=== PATIENT | male | born 1985 ===

== ENCOUNTER 2017-07-19 06:19 | Observation (INO) | payer OTHER, BC ==
[2017-07-19 06:39] VITALS: RESP 18
--- NOTE | 2017-07-19 07:18 | ED PDOC ---
- ECG O2 Sat by Pulse Oximetry: 99 (RA) Pulse Ox Interpretation: Normal Medical Decision Making Medical Decision Making: Time: 7:10 Patient was signed out to me by Dr. Newton. Disposition - Disposition Forms: [employer] ([employer])
[2017-07-19 08:10] LABS: URINE BILIRUBIN NEGATIVE (NEGATIVE); URINE BLOOD NEGATIVE (NEGATIVE); URINE CLARITY CLEAR (Clear); URINE COLOR YELLOW (YELLOW); URINE GLUCOSE (UA) NEG (Normal); URINE LEUKOCYTE ESTERASE NEG Leu/uL (Negative); URINE PROTEIN NEGATIVE (NEGATIVE); URINE UROBILINOGEN 0.2-1.0 mg/dL (0.2-1.0)
[2017-07-19 08:14] LABS: BASO % 0.4 % (0.0-2.0); EOS # 0.1 K/uL (0.0-0.7); EOS % 0.8 % (0.0-4.0); HEMOGLOBIN 14.4 g/dL (12.0-18.0); LYMPH # 1.9 K/uL (1.0-4.3); MEAN CELL VOLUME 88.7 fl (80.0-94.0); MEAN CORPUSCULAR HEMOGLOBIN 29.8 pg (27.0-31.0); MEAN CORPUSCULAR HGB CONC 33.6 g/dL (33.0-37.0); MEAN PLATELET VOLUME 8.3 fl (7.2-11.7); MONO # 0.4 K/uL (0.0-0.8); MONO % 6.1 % (0.0-10.0); NEUT # 4.4 K/uL (1.8-7.0); NEUT % 64.7 % (50.0-75.0); NRBC % 0.1 % (0.0-0.0); RBC 4.84 Mil/uL (4.40-5.90); RED CELL DISTRIBUTION WIDTH 14.3 % (11.5-14.5); WHITE BLOOD COUNT 6.8 K/uL (4.8-10.8)
[2017-07-19 08:15] LABS: BLOOD UREA NITROGEN 17 mg/dl (9-20); CALCIUM 9.7 mg/dL (8.4-10.2); GFR AFRICAN-AMERICAN > 60; GFR NON-AFRICAN AMERICAN > 60
--- NOTE | 2017-07-19 08:22 | ED PDOC ---
Upper Extremity Pain/Injury Time Seen by Provider: 07/19/17 07:10 Chief Complaint (Nursing): Upper Extremity Problem/Injury Chief Complaint (Provider): Left Hand Injury History Per: Patient History/Exam Limitations: no limitations Onset/Duration Of Symptoms: Days (x7) Current Symptoms Are (Timing): Still Present Additional Complaint(s): Juan Francisco Reyes is a 45 year old male, who presents to the ED complaining of left hand pain s/p injury to left hand at work one week ago. Patient states that he fell and crushed his left hand at work, and visited Dr. Bustillos who recommended he needs surgical repair. He reports taking Percocet for the pain, with no relief of symptoms. He also denies any numbness, tingling, or head injury. Patient offers no other complaints at this time. PMD: none provided Past Medical History Reviewed: Historical Data, Nursing Documentation, Vital Signs Vital Signs: Last Vital Signs Temp 98.0 F 07/19/17 06:35 Pulse 73 07/19/17 06:35 Resp 18 07/19/17 06:35 BP Pulse Ox 99 07/19/17 06:35 - Medical History PMH: Fractures (Left arm x 2) - Surgical History Surgical History: No Surg Hx - Family History Family History: States: Unknown Family Hx - Social History Current smoker - smoking cessation education provided: Yes Alcohol: Social - Home Medications Home Medications: Ambulatory Orders Medication Instructions Recorded Cephalexin [Keflex] 500 mg PO Q6 07/19/17 Docusate [Colace] 100 mg PO DAILY PRN 07/19/17 Hydrocodone/Acetaminophen 1 tab PO Q4 07/19/17 [Hydrocodone-Acetamin 5-325 mg] Ondansetron HCl [Zofran] 8 mg PO DAILY 07/19/17 oxyCODONE/Acetaminophen [Percocet 1 tab PO Q6 PRN 07/19/17 5/325 mg Tab] - Allergies Allergies/Adverse Reactions: Allergies Allergy/AdvReac Type Severity Reaction Status Date / Time No Known Allergies Allergy Verified 07/19/17 06:35 Review of Systems ROS Statement: Except As Marked, All Systems Reviewed And Found Negative Musculoskeletal: Positive for: Arm Pain (left), Hand Pain (left ) Neurological: Negative for: Numbness Physical Exam - Reviewed Nursing Documentation Reviewed: Yes Vital Signs Reviewed: Yes - Physical Exam Appears: Positive for: Non-toxic, No Acute Distress Head Exam: Positive for: ATRAUMATIC, NORMAL INSPECTION, NORMOCEPHALIC Skin: Positive for: Normal Color, Warm, Dry Eye Exam: Positive for: EOMI, Normal appearance, PERRL Neck: Positive for: Normal, Painless ROM Cardiovascular/Chest: Positive for: Regular Rate, Rhythm. Negative for: Murmur Respiratory: Positive for: Normal Breath Sounds. Negative for: Respiratory Distress Gastrointestinal/Abdominal: Positive for: Normal Exam, Soft. Negative for: Tenderness Back: Positive for: Normal Inspection. Negative for: L CVA Tenderness, R CVA Tenderness, Vertebral Tenderness Extremity: Positive for: Capillary Refill (normal), Other (Left arm is in cast, tip of fingers, first two, visible fingers are neurovascularly intact ). Negative for: Deformity, Swelling Neurologic/Psych: Positive for: Alert, Oriented - Laboratory Results Result Diagrams: 07/19/17 07:40 07/19/17 07:40 - ECG O2 Sat by Pulse Oximetry: 99 (RA) Pulse Ox Interpretation: Normal Medical Decision Making Medical Decision Making: Time: 7:57 Initial Impression: left hand injury, hand and arm fracture Plan: --X-Ray Hand --Coag --Blood Type and Screen Contact and consult Dr. Bustillos. X-Ray Hand: FINDINGS: BONES: No definite acute fracture or dislocation is identified. Partial cast obscures bone and soft tissue details. A small exostosis is questioned related to the distal metaphysis of the radial side of the 3rd metacarpal bone. JOINTS: Normal. No osteoarthritic changes. SOFT TISSUES: Normal. OTHER FINDINGS: None. IMPRESSION: No definite acute fracture dislocation however the study is compromised by partial cast. Small exostosis is questioned related to the distal portion of the 3rd metacarpal bone as discussed above. Time: 7:[address] Bustillos, patient will be admitted for surgical fixation. Scribe Attestation: Documented by Denise Colindres, acting as a scribe for Sushila Rader MD Provider Scribe Attestation: All medical record entries made by the Scribe were at my direction and personally dictated by me. I have reviewed the chart and agree that the record accurately reflects my personal performance of the history, physical exam, medical decision making, and the department course for this patient. I have also personally directed, reviewed, and agree with the discharge instructions and disposition. Disposition - Clinical Impression Clinical Impression: Hand fracture, left - Patient ED Disposition Is Patient to be Admitted: Yes Discussed With : Poli Bustillos Doctor Will See Patient In The: Hospital Counseled Patient/Family Regarding: Studies Performed, Diagnosis - Disposition Disposition Time: 07:57 Condition: FAIR - Pt Status Changed To: Hospital Disposition Of: Observation - POA Present On Arrival: Falls Or Trauma
[2017-07-19 08:44] LABS: PARTIAL THROMBOPLASTIN TIME 31.2 Seconds (25.6-37.1); PROTHROMBIN TIME 10.6 Seconds (9.8-13.1)
--- NOTE | 2017-07-19 10:21 | RAD ---
PROCEDURE: Left Hand Radiographs. HISTORY: left hand injury COMPARISON: None. FINDINGS: BONES: No definite acute fracture or dislocation is identified. Partial cast obscures bone and soft tissue details. A small exostosis is questioned related to the distal metaphysis of the radial side of the 3rd metacarpal bone. JOINTS: Normal. No osteoarthritic changes. SOFT TISSUES: Normal. OTHER FINDINGS: None. IMPRESSION: No definite acute fracture dislocation however the study is compromised by partial cast. Small exostosis is questioned related to the distal portion of the 3rd metacarpal bone as discussed above.
[2017-07-19] MEDS ORDERED: Bupivacaine 0.5% Inj(30mL) ONE (10:30)
[2017-07-19] MEDS ORDERED: Lidocaine 1% Inj (20ml) ONE (10:30)
[2017-07-19] MEDS ORDERED: Ropivacaine 0.5% 30ML IV ONE (10:54)
[2017-07-19] MEDS ORDERED: Rocuronium 10 mg/ml (5 ml) ONE (10:57)
[2017-07-19] MEDS ORDERED: Succinylcholine 200 mg/10 ml Inj IV ONE (10:57)
[2017-07-19] MEDS ORDERED: Propofol 10 mg/ml Inj (20 ML) ONE ×2 (10:57→10:58)
[2017-07-19] MEDS ORDERED: Midazolam 2 MG/2 ML VIAL ONE (10:58)
[2017-07-19] MEDS ORDERED: Sevoflurane - Inhalation Anesthetic Liq (250 ml) ONE (11:09)
[2017-07-19] MEDS ORDERED: Lactated Ringer's 1,000 ML IV ONE ×2 (11:32→13:15)
--- NOTE | 2017-07-19 15:02 | PCM.SURG1 ---
Surgeon's Initial Post Op Note - Surgeon's Notes Surgeon: Dr. Bustillos Project Associate: Dr. Pacheco DPM Type of Anesthesia: General LMA Anesthesia Administered By: Dr. Mcfadden Pre-Operative Diagnosis: left hand crush injury Operative Findings: see dictation Post-Operative Diagnosis: same Operation Performed: left hand 3rd and 4th digit wound exploration with debridement, pinning and all other indicated procedures Specimen/Specimens Removed: none Estimated Blood Loss: EBL {In ML}: 10 Blood Products Given: N/A Drains Used: No Drains Post-Op Condition: Good Date of Surgery/Procedure: 07/19/17 Time of Surgery/Procedure: 13:00
[2017-07-19] MEDS ORDERED: HYDROmorphone 0.5 mg/0.5 ml ISec IVP PRN (15:08)
[2017-07-19] MEDS ORDERED: HYDROmorphone 0.5 mg/0.5 ml ISec ONE (15:10)
--- NOTE | 2017-07-19 15:11 | PCM.ANESB4 ---
Infraclavicular Block - Femoral Nerve Block Date of Procedure: 07/19/17 Procedure Performed: Brachial Plexus at the Infraclavicular area Left - Procedure Infraclavicular Block: The procedure was explained to the patient that it is for the post-operative pain management. Consent was obtained after a thorough discussion with the patient regarding the benefits and possible complications of local anesthetic block of the brachial plexus at the infraclavicular area. The patient was brought to the operating room and standard monitors were applied. Time-out was held with the circulating nurse to confirm the correct surgery and the appropriate block. Patient's head was gently rotated away from the operative ___ _left____ shoulder and the area medial to the coracoid process and inferior to the clavicle was carefully palpated. The ultrasound transducer was then applied to the skin in the transverse plane and the brachial plexus was visualized surrounding the axillary artery and deep to the pectoralis major and minor muscles. After thorough identification, this area was prepped withchloroprep solution. At this point, a #20 gauge Stimuplex 4-inch needle was inserted cephalad to the ultrasound transducer and inferior to the clavicle in-plane towards the posterior aspect of the axillary artery. Needle advancement was performed carefully under ultrasound visualization. Nerve stimulator was used and twitch of the affected extremity including fingers, hand, wrist and elbow was obtained at current of __0.4___MA. After repeated negative aspiration, __5___cc of _ ropivacaine 0.5% was injected and this was followed with ___5___ cc of __ _ropivacaine 0.5% . Under ultrasound guidance the local anesthetics were observed surrounding the cords of the brachial plexus. The needle was removed intact and sterile dressing was applied. The patient had stable vital signs, was conscious and in no apparent distress. The patient tolerated the infraclavicular block of the brachial plexus well with stable vital signs was prepared for subsequent surgery.
[2017-07-19 18:05] VITALS: BP 108/76; PULSE 75; TEMP 98; O2SAT 99
--- NOTE | 2017-07-24 23:28 | OP ---
PROCEDURE DATE: 07/19/2017 PREOPERATIVE DIAGNOSES: 1. Left third digit distal phalanx open fracture. 2. Left third digit nail bed injury. 3. Left fourth digit open middle phalanx fracture. 4. Left fourth digit partial finger amputation. 5. Left fourth digit crush injury. POSTOPERATIVE DIAGNOSES: 1. Left third digit distal phalanx open fracture. 2. Left third digit nail bed injury. 3. Left fourth digit open middle phalanx fracture. 4. Left fourth digit partial finger amputation. 5. Left fourth digit crush injury. PROCEDURE: 1. Left fourth digit open reduction internal fixation of middle phalanx using Ilda wire fixation, 54948. 2. Left fourth open fracture debridement of muscle, tendon and bone, 83060. 3. Left fourth digit neurolysis with use of microscope, 72539. 4. Left third digit open fracture distal phalanx debridement of muscle and bone, 11176. 5. Left third digit nail bed repair, 62517. 6. Wound exploration of the left third and fourth digits. SURGEON: Poli Bustillos MD TYPE OF ANESTHESIA: General. ESTIMATED BLOOD LOSS: Minimal. COMPLICATIONS: None. SPECIMEN: None. DRAINS: None. DEPOSITION: Stable to recovery room. INDICATION: This is a 32-year-old right hand dominant male who sustained a crush injury at his job when a heavy beam fell on top of his fingers. The patient was diagnosed with open fracture and partial finger amputation. He is indicated for above surgery for wound debridement, fracture fixation, and wound exploration. Risks and benefits of the procedure were explained to the patient. Risks included but not limited to bleeding, infection, tendon, nerve, vessel injury, instability, chronic pain, and potential need for additional surgery in the future. Patient understood the above risks and elected to proceed. An informed consent was obtained. DESCRIPTION OF PROCEDURE: He was taken to the operating room and placed supine on the operating room table. After adequate anesthesia was given and prophylactic antibiotics, a well-padded non-sterile tourniquet was placed on the patient's left upper extremity. The entire extremity was then prepped and draped in a standard surgical fashion. Timeout was performed, work was begun on fourth digit. The open wound on the lateral and volar aspect of the finger was evaluated and explored Wound was opened at the laceration site, there was extensive soft tissue damage. The wound was debrided, and nonviable tissue was removed with rongeur. Dissection was carried down to identifying the flexor tendon which was so intact. There was a transverse fracture and full displacement of the middle phalanx. The fracture pieces were debrided with rongeur, curettes and irrigation, then under the direct visualization the fracture ends were openly reduced and held in place with Ilda wire fixation. Next, microscope was used to further evaluate the injury of the finger. Of note, the finger had good capillary refills. The microscope was used to further identify the zone of injury. At the zone of injury, there was complete destruction of the ulnar digital vein. The ulnar digital artery was still intact. The ulnar digital nerve was partially lacerated and neurolysis was performed. Radial digital artery and nerve were intact and also neurolysis was performed. After thorough irrigation and debridement, the pin was cut short protruding from the skin. The wound was then loosely closed with 4-0 Monocryl sutures. Fluoroscopic images confirmed well reduced fracture. Next, work was begun on debriding and exploring the third digit. The nail bed of the third finger was evaluated, there was an open fracture which was debrided at the distal nail bed and distal phalanx with the use of rongeurs and curettes. The wound was copiously irrigated. The nail bed was then repaired with 4-0 Monocryl sutures. The patient had good capillary refills on the third finger. A synthetic nail was placed into the eponychium of the third digit. The wound was then sterilely dressed with Xeroform, 4x4 and fluffs and plaster splint was then placed and holding fingers in resting position. Post-splinting, the patient continued to have good capillary refills and warm fingers at the tips. The patient was extubated and returned to recovery room in excellent condition. Poli Bustillos MD [facility]
== END 2017-07-19 18:15 | disposition home or self-care (01) ==
LOC: H.ER 06:19 → H.ERHOLD 07:57
PROVIDERS: ADMIT Orthopaedic Surgery; ATTEND Orthopaedic Surgery
DX: S68.125A Partial traumatic metacarpophalangeal amputation of left ring finger, initial encounter (principal); S62.633B Displaced fracture of distal phalanx of left middle finger, initial encounter for open fracture; F17.200 Nicotine dependence, unspecified, uncomplicated; S67.195A Crushing injury of left ring finger, initial encounter; W20.8XXA Other cause of strike by thrown, projected or falling object, initial encounter; Y99.0 Civilian activity done for income or pay
CPT/HCPCS: 11012; 11760; 26735; 64702; 64727; 73130; 80048; 81003; 85025; 85610; 85730; 86850; 86900; 99285; G0378; J0330; J0690; J1170; J2001; J2250; J2405; J2704; J3010; J7030; J7120